=== PATIENT | female | born 1995 | race Asian ===

== ENCOUNTER 2021-07-13 23:53 | Emergency (ER) | payer OTHER ==
[~2021-07-13] VITALS: Ht 157 cm; Wt 65.0 kg
[2021-07-14 00:32] VITALS: BP 105/66
[2021-07-14 00:33] VITALS: BP 111/76
[2021-07-14 02:26] LABS: BASOPHILS # (AUTO) 0.1 10^3/uL (0.0-0.1); BASOPHILS % (AUTO) 1 % (0-10); EOSINOPHILS # (AUTO) 0.2 10^3/uL (0.0-0.3); EOSINOPHILS % (AUTO) 2 % (0-10); HEMATOCRIT 36 % (35-52); HEMOGLOBIN 11.2 g/dL (11.5-16.0); LYMPHOCYTES # (AUTO) 3.4 10^3/uL (1.0-4.0); LYMPHOCYTES % (AUTO) 36 % (12-44); MEAN CORPUSCULAR HEMOGLOBIN 23 pg (25-34); MEAN CORPUSCULAR HGB CONC 31 g/dL (32-36); MEAN CORPUSCULAR VOLUME 75 fL (80-99); MEAN PLATELET VOLUME 9.3 fL (9.0-12.2); MONOCYTES % (AUTO) 10 % (0-12); NEUTROPHILS # (AUTO) 4.8 10^3/uL (1.8-7.8); NEUTROPHILS % (AUTO) 51 % (42-75); PLATELET COUNT 398 10^3/uL (130-400); WHITE BLOOD COUNT 9.5 10^3/uL (4.3-11.0)
[2021-07-14 02:26] LABS: ALBUMIN 4.1 GM/DL (3.2-4.5); BILIRUBIN,TOTAL 0.2 MG/DL (0.1-1.0); CALCIUM 9.4 MG/DL (8.5-10.1); CREATININE SERUM 0.68 MG/DL (0.60-1.30); POTASSIUM 4.3 MMOL/L (3.6-5.0); TOTAL PROTEIN 7.5 GM/DL (6.4-8.2)
[2021-07-14 02:27] LABS: CLARITY,URINE CLEAR; COLOR,URINE YELLOW
[2021-07-14 02:28] LABS: BACTERIA,URINE TRACE /HPF; BILIRUBIN,URINE NEGATIVE (NEGATIVE); GLUCOSE, URINE (UA) NEGATIVE (NEGATIVE); KETONES,URINE NEGATIVE (NEGATIVE); LEUKOCYTE ESTERASE ,URINE NEGATIVE (NEGATIVE); NITRITE,URINE NEGATIVE (NEGATIVE); PROTEIN,URINE NEGATIVE (NEGATIVE); RBC,URINE 0-2 /HPF; SQUAMOUS EPITHELIAL CELL,UR 0-2 /HPF
[2021-07-14 02:30] LABS: HCG,QUALITATIVE URINE NEGATIVE (NEGATIVE)
--- NOTE | 2021-07-14 02:35 | ED Syncope ---
General Stated Complaint: DIZZY History of Present Illness Date Seen by Provider: Jul 14, 2021 Time Seen by Provider: 00:10 Initial Comments Patient to the ER by private conveyance with 2 significant others and chief complaint that she is feeling lightheaded and passed out while sitting on the couch watching a movie less than 1 hour prior to arrival. She says this is happened in the past and typically her mother who is a physician has made her drink electrolyte drinks and this made her feel better. She drank a Gatorade an d by the time she got to the ER she is already feeling better. She still a little lightheaded and says she feels like she could pass out if she stands up too quickly. She says she has not eaten well for the past 3 days because she is had some nausea. She associates her nausea with the fact that she started her period 3 days ago. She says this is not uncommon for her. 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 She has not had fevers, chills, diarrhea, discharge or dysuria. She is not on control. Allergies and Home Medications Patient Home Medication List Home Medication List Reviewed: Yes Review of Systems Constitutional: No chills, No diaphoresis EENTM: No ear discharge, No hearing loss Respiratory: No cough, No short of breath Cardiovascular: No chest pain, No edema Gastrointestinal: No abdominal pain, No constipation, No diarrhea; nausea; No vomiting Genitourinary: No discharge, No dysuria : No LMP: Jul 13, 2021 Control/STD Prophylaxis: None Musculoskeletal: No back pain, No joint pain All Other Systems Reviewed Negative Unless Noted: Yes Past Toovemw-Nybans-Rojbnr Hx Patient Social History Tobacco Use?: Yes Tobacco type used: Cigarettes Use of E-Cig and/or Vaping dev: No Substance use?: No Physical Exam Vital Signs Capillary Refill : Height, Weight, BMI Height: '" Weight: lbs. oz. kg; BMI Method: General Appearance: No Apparent Distress, WD/WN HEENT: PERRL/EOMI, Pharynx Normal, Moist Mucous Membranes Neck: Full Range of Motion, Normal Inspection, Non Tender Cardiovascular: Regular Rate, Rhythm, No Edema, Normal Peripheral Pulses Respiratory: Lungs Clear, Normal Breath Sounds, No Accessory Muscle Use, No Respiratory Distress Extremities: Normal Capillary Refill, Normal Inspection Neurologic/Psychiatric: Alert, Oriented x3 Cranial Nerves: Normal Hearing, Normal Speech Coordination/Gait: Normal Gait Motor/Sensory: No Motor Deficit, No Sensory Deficit, No Pronator Drift Skin: Normal Color, Warm/Dry Progress/Results/Core Measures Results/Orders My Orders Orders - CONCHIS OROSCO Orthostatic Vital Signs (Adult (07/14/21 02:18) Cbc With Automated Diff (07/14/21 02:18) Comprehensive Metabolic Panel (07/14/21 02:18) Ua Culture If Indicated (07/14/21 02:18) Urine Bedside (07/14/21 02:18) Ekg Tracing (07/14/21 02:18) Continuous Ekg Monitoring (07/14/21 02:18) Progress Progress Note #1: Time: 00:34 Progress Note This seems consistent with the patient's previous episodes of near syncope and syncope. She has normal presenting vital signs. We will check some orthostatic vital signs. She declined IV fluids. She says she feels better after her sports drink so we will give her some ice water, Zofran for nausea and check some basic labs including a sugar, CBC, CMP. Progress Note #2: Time: 01:10 Progress Note Orthostats are normal. Urine and labs are normal. EKG is unremarkable. Patient is feeling better after some fluids and ready to go home. [place] syncope score: -3 points. Very low risk; 0.4% risk of 30-day serious adverse event. Initial ECG Impression Date: Jul 14, 2021 Initial ECG Impression Time: 00:27 Initial ECG Rate: 85 Initial ECG Rhythm: Normal Sinus Initial ECG Intervals: Normal Initial ECG Impression: Normal Comment Normal sinus rhythm without clinically relevant ST elevation or depression. Departure Impression Primary Impression: Orthostatic syncope Disposition: 01 HOME, SELF-CARE Condition: Stable Departure-Patient Inst. Decision time for Depature: 01:15 Referrals: NO,LOCAL PHYSICIAN (PCP) Primary Care Physician Patient Instructions: Syncope (Fainting) (DC), Orthostatic Hypotension Add. Discharge Instructions: Drink plenty of fluids. Sports drinks are encouraged. Ondansetron 1 tablet every 6 hours as needed for nausea or vomiting. CONCHIS OROSCO Jul 14, 2021 02:35
== END 2021-07-14 01:25 | disposition home or self-care (01) ==
LOC: ER 23:53
DX: R55 Syncope and collapse (principal); F17.210 Nicotine dependence, cigarettes, uncomplicated
CPT/HCPCS: 36415; 80053; 81000; 84703; 85025; 93005